=== PATIENT | female | born 1965 | race Caucasian/White ===

== ENCOUNTER → 2020-01-24 12:48 | Outpatient (CLI) | payer BC, SELFPAY | PROVIDERS: PCP Internal Medicine; Visit Provider Internal Medicine | DX: R42 Dizziness and giddiness (principal); R94.31 Abnormal electrocardiogram [ECG] [EKG]; R53.83 Other fatigue | CPT/HCPCS: 93225 ==

== ENCOUNTER → 2020-01-30 06:11 | Outpatient (CLI) | payer BC, SELFPAY ==
--- NOTE | 2020-01-30 06:12 | NM_ITS ---
APPROVED REPORT Exam: Nuclear Stress Test Indication: Chest pain, SOB, Syncope, Fatigue, HTN, High cholesterol, Family history Patient Location: Outpatient Stress Tech: Charosteffany Alvarado MD Tech:Katie Arzate ARRT, RT (R)(N) Ht: 5 ft 8 in Wt: 170 lbs Bra Size: 36B HR: 66 bpm BP: 135/72 mmHg BSA: 1.91 m2 BMI: 25.8 History: Chest pain, SOB, Syncope, Fatigue, HTN, High cholesterol, Family history Procedure: Patient received a 0.4 mg of intravenous Lexiscan, resting heart rate 66 bpm, resting blood pressure 135/72 mmHg, with Lexiscan maximum heart rate achived was 101 bpm which is % of the maximum predicted heart rate and blood pressure was 139/77 mmHg. With Lexiscan, patient denied any complaint of chest pain. Cardiac Stress and Resting SPECT Images: Cardiac Stress and Resting SPECT images were obtained using technetium 99m Myoview 30.4 mCi stress and 10.71 mCi at rest. EF 70%, no wall motion abnormality No reversible or fixed defects Diaphragmatic attenuation on delayed images anterior wall Conclusion: EF 70%, no wall motion abnormality No reversible or fixed defects Diaphragmatic attenuation on delayed images anterior wall Electronically signed by : Ladarius Harding MD 01/30/2020 13:11:17
--- NOTE | 2020-01-30 06:12 | CA_ITS ---
APPROVED REPORT Exam: Pharmacologic Technologist: Charo Alvarado Ht: 5 ft 8 in Wt: 170 lbs BSA: 1.91 m2 HR: 66 bpm BP: 135/72 mmHg Indications: Abnormal ekg, Dizziness Medical History Medications: Bisoprolol, Quetiapine, Cetirizine, Multivitamin, Stress Test Details Test: LEXISCAN HR Resting HR: 73 bpm Max Heart Rate (APMHR): 167 bpm Max HR Achieved: 103 bpm Target HR (85% APMHR): 141 bpm % of APMHR: 61 Recovery HR: 87 bpm BP Resting BP: 135.0/72.0 mmHg Max BP: 146.0/83.0 mmHg Recovery BP: 134.0/75.0 mmHg ECG Clinical Exercise duration: 04:00 min Highest Stage Achieved: Exercise capacity: 1.0 METs Stress ECG Conclusion Resting ECG: Sinus rhythm Lexiscan portion completed. Patient complained of shortness of breath during infusion. Symptoms: Shortness of breath during peak infusion, resolved in recovery. No chest pain. Arrhythmias/Ectopy: No ectopy. ST-T Changes: Less than 1.[address] depression. Conclusion: Images to follow. Test Summary REST . . . . . . . Resting REST 09:56 . . 73 . 135/ 72 . . Stage 1 . . . . . . . Myoview Injected Stage 1 01:00 . . 98 . . . . Stage 2 01:00 . . 101 . 139/ 77 . . Stage 3 01:00 . . 98 . 125/ 69 . . Stage 4 01:00 . . 99 . 146/ 83 . Stop exercise at 04:00 RECOVERY 01:00 . . 93 . 140/ 78 . . RECOVERY 02:00 . . 91 . 140/ 78 . . RECOVERY 03:00 . . 86 . 144/ 84 . . RECOVERY 04:00 . . 90 . 134/ 75 . . RECOVERY 04:05 . . 83 . 134/ 75 . . Electronically signed by : Burt Padgett, 01/30/2020 17:40:12
--- NOTE | 2020-01-30 06:12 | CA_ITS ---
APPROVED REPORT EXAM: Comprehensive 2D, Doppler, and color-flow Echocardiogram Bulb Brander: Aurelia Becerra RVT Ht: 5 ft 9 in Wt: 174lbs BSA: 1.95 BP: 150/67 mmHg Indications: ABN EKG,DIZZINESS,FATIGUE,HTN 2D Dimensions LVOT 1.71 cm (M/F) 1.5-2.5 M-Mode Dimensions RVDd 3.01 cm (0.9-2.6) LVDd 4.64 cm (3.5-5.7) LVDs 3.25 cm (3.5-5.7) IVSd 0.99 cm (0.6-1.1) PWd 0.74 cm (0.6-1.1) EF (Teich) 57.20% FS 30.00% EDV (Teich) 99.30 mL ESV (Teich) 42.50 mL LV Diastology E/A Ratio 1.07 Mitral Valve MV A Velocity 65.00 (40-130 cm/s) Left Ventricle Left atrium is normal size, left ventricle is normal size, there is no concentric left ventricular hypertrophy, visually estimated ejection fraction 55% with no regional wall motion abnormality, diastolic parameters are within normal range. Right Ventricle Right atrium and right ventricular normal size and contractility. Aortic Valve Aortic valve is grossly normal, there is no aortic stenosis or aortic insufficiency. Mitral Valve Mitral valve is grossly normal, there is mild mitral regurgitation. Tricuspid Valve Tricuspid valve grossly normal, there is mild tricuspid regurgitation, tricuspid regurgitation jet velocity is inadequate for calculation of the right ventricular systolic pressure. Pulmonic Valve Pulmonic valve is poorly visualized. Great Vessels Aortic root is normal size. Pericardium No significant pericardial effusion noted. Conclusion 1. Normal left ventricular size, preserved left ventricular systolic function, visually estimated ejection fraction 55% with no regional wall motion abnormality, diastolic parameters are within normal range. 2. Mild mitral and tricuspid regurgitation. 3. No significant pericardial effusion noted. Electronically signed by : Burt Padgett, 01/30/2020 18:16:11
--- NOTE | 2020-01-30 08:21 | HMH.ITSHM ---
Current Home Medications as stated by this patient Ana Maria Go or senior account representative. []QUETIAPINE CENTRUM BISOPROLOL ZRYTEC
== END ==
PROVIDERS: PCP Internal Medicine; Visit Provider Internal Medicine
DX: R42 Dizziness and giddiness (principal); R94.31 Abnormal electrocardiogram [ECG] [EKG]; R53.83 Other fatigue
CPT/HCPCS: 78452; 93017; 93306; A9502; J2785

== ENCOUNTER 2020-02-20 08:32 | Day surgery (SDC) | payer BC, SELFPAY ==
[2020-02-20] VITALS (13 sets, daily range): BP systolic 113–150; BP diastolic 55–86; PULSE 67–81; RESP 16–18; TEMP 36.8; O2SAT 98–100; BMI 25.7
--- NOTE | 2020-02-20 | IR_ITS ---
APPROVED REPORT Patient Location: Outpatient Power Cleaner Operator: MICHELLE Doll RT (R) PROCEDURES Left heart catheterization Left ventriculogram Selective coronary angiogram INDICATION Abnormal Myoview, Typical angina pectoris Informed consent was obtained prior to the procedure. COMPLICATIONS NONE Estimated Blood Loss: LESS THAN 10 ML TECHNIQUE One percent lidocaine used to anesthetize the right anterior aspect of the wrist. The right radial artery was accessed via the Seldinger technique. A 6 [place] sheath was placed in the right radial artery. 2.5 mg of verapamil, 800 mcg of nitroglycerin, 1mg Lidocaine and 5000 U Heparin were given through the arterial sheath. The Susy catheter was also used to perform left heart catheterization, left ventriculogram and selective coronary angiogram. At the end of the procedure the sheath was removed good hemostasis was achieved using Traclet band, patient was transferred to the postop holding area in stable condition. ANGIOGRAPHIC RESULTS The left main artery Normal The left anterior descending artery Normal The circumflex artery Normal The right coronary artery Dominant normal The ventriculogram reveals Normal 65% The left ventricular end-diastolic pressure 10 mmHg IMPRESSION Normal coronary arteries Normal ejection fraction Normal left ventricular end-diastolic pressure PLAN 1. Evaluation of noncardiac symptomatology Electronically signed by : Waqas Tierney, 02/20/2020 10:40:32
[2020-02-20 09:17] LABS: Basophils % 0.5 % (0.1-2.0); Eosinophils # 0.1 K/mm3 (0.0-0.4); Eosinophils % 1.9 % (0.1-12.0); Hematocrit 43.7 % (37.0-47.0); Hemoglobin 14.4 g/dL (12.2-16.2); Lymphocytes # 2.8 K/mm3 (0.7-4.5); Lymphocytes % 40.3 % (10-50); Mean Corpuscular HGB Conc 32.9 g/dL (31.8-35.4); Mean Corpuscular Hemoglobin 29.4 pg (27.0-31.2); Mean Corpuscular Volume 89.4 fl (81-99); Mean Platelet Volume 8.1 fl (7.4-10.4); Monocytes # 0.3 K/mm3 (0.1-1.0); Monocytes % 4.3 % (1.7-9.3); Neutrophils # 3.6 K/mm3 (1.8-7.8); Platelet Count 297 K/mm3 (142-424); Red Blood Count 4.89 M/mm3 (4.20-5.40); Red Cell Distribution Width 13.5 % (11.5-17.5); White Blood Count 6.9 K/mm3 (4.8-10.8)
[2020-02-20 09:19] LABS: Chloride 102 mmol/L (98-107); Potassium 3.5 mmoL/L (3.5-5.1); Sodium 141 mmol/L (136-145)
[2020-02-20 09:22] LABS: Blood Urea Nitrogen 14 mg/dl (7-17); Creatinine Clearance Estimated 116 mL/min (50-200); Estimated Glomerular Filt Rate 88 ml/min (>60); GFR (African American) 106 ML/MIN (>60)
[2020-02-20 09:23] LABS: Anion Gap 12.5 mEq/L (5-15); Calcium 9.8 mg/dl (8.4-10.2); Carbon Dioxide 30 mmol/L (22.0-30.0); Glucose 98 mg/dl (74-100)
[2020-02-20 09:49] LABS: Coronavirus 19 IgG Antibody Negative (Negative)
[2020-02-20 09:50] LABS: Coronavirus 19 IgM Antibody Negative (Negative)
== END 2020-02-20 13:56 | disposition home or self-care (01) ==
PROVIDERS: PCP Internal Medicine; Visit Provider Internal Medicine
DX: I25.118 Atherosclerotic heart disease of native coronary artery with other forms of angina pectoris (principal); I10 Essential (primary) hypertension; R94.30 Abnormal result of cardiovascular function study, unspecified; Z79.899 Other long term (current) drug therapy
CPT/HCPCS: 80048; 85025; 86328; 93458; 99152; C1725; C1769; J1644; Q9967